=== PATIENT | female | born 1985 | race Caucasian/White ===

== ENCOUNTER → 2018-12-14 | Outpatient (REF) ==
[~2018-12-14] MED LIST: FEMIRON20 MG PO
== END ==
LOC: ZLAB.WCH 10:03
DX: Z01.89 Encounter for other specified special examinations (principal)

== ENCOUNTER 2019-12-29 13:23 | Inpatient (IN) | payer MEDICAID ==
[~2019-12-29] VITALS: Ht 162.6 cm; Wt 102.7 kg
[2019-12-29] VITALS (30 sets, daily range): BP systolic 91–152; BP diastolic 47–92; PULSE 76–105; TEMP 97.6–98.4
--- NOTE | 2019-12-29 15:15 | NUR ---
Patient ambulatory to LR1 with spouse, changed into gown. Patient admitted for 36.3 week demise. Plan of care discussed.
--- NOTE | 2019-12-29 15:20 | NUR ---
This RN, Nagi KHAN, Kalyn KHAN at beside and Lourdes Muñoz going over information on testing patient for covid. Nagi swabs patient at this time and patient tolerates well. 1540: IV started in right wrist per Laura KHAN and blood drawn for lab, LR infusing. Assessment completed and packet given and gone over. Plan of care discussed and discussing pitocin induction and patient agrees to plan of care. 1426: Pitocin started at 2mU per protocol.
[2019-12-29] MEDS ORDERED: TYLENOL 500MG500 MG PO (16:29)
[2019-12-29] MEDS ORDERED: PRENATAL TABLET PO (16:29)
[2019-12-29 16:37] LABS: BASO % 0.2 % (0.0-2.0); EOS # 0.1 (0.0-0.7); EOS % 1.6 % (0-4.0); GRAN # 5.2 (1.4-6.5); GRAN % 62.4 % (42.2-75.2); HEMOGLOBIN 11.5 g/dl (12.5-16.0); LYMPH # 1.9 (1.2-3.4); LYMPH % 22.7 % (20.0-51.0); MEAN CELL VOLUME 98 fl (80.0-100.0); MEAN CORPUSCULAR HEMOGLOBIN 33 pg (27.0-31.0); MEAN CORPUSCULAR HGB CONC 34 g/dl (33.0-37.0); MEAN PLATELET VOLUME 8.7 fl (7.4-10.4); MONO # 1.1 (0.1-0.6); MONO % 12.7 % (1.7-9.3); PLATELET COUNT 236 K/mm3 (130-400); RED BLOOD COUNT 3.46 M/mm3 (4.10-5.30); REDCELL DISTRIBUTION WIDTH-CV 13.2 % (11.5-14.5)
[2019-12-29 16:39] LABS: HEMATOCRIT 33.8 % (37.0-47.0)
[2019-12-29 16:52] LABS: ALBUMIN 3.9 gm/dL (3.5-5.0); CALCIUM 9.4 mg/dL (8.4-10.2); CREATININE, serum 0.31 (0.52-1.25); POTASSIUM 3.6 mmol/L (3.4-5.0); TOTAL PROTEIN 6.9 gm/dL (6.4-8.2)
--- NOTE | 2019-12-29 17:15 | NUR ---
Patient requesting epidural and T.Harleigh RN ADVICE called and notified. Dr. Gudino at bedside and SONO done at this time per patients request. No heart beat noted. Dr. Gudino informs patients on plan of care and answering questions. 1730: SVE per physician /-2 with meconium fluid noted. Patient/significant other updated.
[2019-12-29 17:16] LABS: THYROID STIMULATING HORMONE 0.623 uIU/mL (0.465-4.680)
--- NOTE | 2019-12-29 17:32 | NUR ---
Patient off monitor to void. 1747: Patient sitting on edge of bed and Kayla MAR at bedside for placement of epidural. Risks gone over. 1803: Test dose given and patient tolerates well. Patient repositioned and plan of care discussed. 182: Patient sitting up eating meal. 1825: Bedside report given to Ekta KHAN.
[2019-12-30] VITALS (12 sets, daily range): BP systolic 94–116; BP diastolic 51–88; PULSE 62–91; TEMP 97.7–98
--- NOTE | 2019-12-30 00:15 | NUR ---
0015 - Pt reports a lot of pressure. SVE by this RN /+2. Dr. Gudino notifed and on his way in for delivery. 0020- Pitts removed without complications. Pushing instructions reviewed. 0030- Dr. Gudino at the bedside. Pt set up for delivery. 0040- of non-viable female fetus. Cords clamped and cut. Fetus carried to warmer by Dr. Gudino. 0042- of placenta. Pitocin started at 333ml/hr per order and protocol. Fundus firm and lochia WNL.
--- NOTE | 2019-12-30 02:25 | NUR ---
Contacted [facility] and spoke with Ang at this time. Referal number [phone]. Baby Girl Vargas not a candidate for donation, ruled out due to age.
--- NOTE | 2019-12-30 03:18 | NUR ---
Was called in at 1:55 for demise. Prayed with the family and provided spiritual care.
--- NOTE | 2019-12-30 06:00 | NUR ---
Pt up to the bathroom with standby assist and without complications. Pt was able to void. Nely-care done. Pt ambulated back to bed. Plan of care reviewed with pt.
--- NOTE | 2019-12-30 07:30 | NUR ---
PATIENT AND BOYFRIEND RESTING IN BEDN BREAKFAST TRY TAKEN INTO BEDSIDE. BOYFRIEND STATES I WONDER WHY THIS HAPPENED. THIS NURSE OFFERED DES SERVICES. PATIENT DECLINED. THIS NURSE STATED ATTENDANT COIN OPERATED LAUNDRY MAY COME TALK WELL [facility]. PATIENT AND SPOUSE UNDERSTAND. PATIENT DENIES NEEDS AT THIS TIME
[2019-12-30 08:33] LABS: PT G20210A MUTATION B Negative (Negative)
[2019-12-30] MEDS ORDERED: IBU600 MG PO (08:34)
--- NOTE | 2019-12-30 08:45 | NUR ---
CHANCE PATHOLOGIST TO NURSERY TO PREFORM GENETIC AND CHROMOSOMAL STUDIES
--- NOTE | 2019-12-30 09:12 | NUR ---
PATIENT REQUESTED I CALL [facility] IN [place]. THIS NURSE TALKED TO BRI. FAX NUMBER GIVEN. BRI SAID SENDING THE BABY HOME WITH THE FAMILY IS OKAY. [facility] NUMBER AND WILL BE FAXING PAPERWORK FOR THE PATIENT TO COMPLETE.
[2019-12-30 10:23] LABS: RPR (VDRL) XXX
[2019-12-30 10:48] LABS: LUPUS ANTICOAGULANT INR 1.1 (0.7-1.3); LUPUS ANTICOAGULANT PT 13.7 Seconds (())
--- NOTE | 2019-12-30 12:55 | NUR ---
FELISA received a social service director consult for the patient due to demise. The patient discharged before FELISA could meet with the patient. SW contacted the patient. The patient lives with the father of the baby and she states she has plenty of support. SW left social service director contact information if she needed resources in the furture. The patient had me on speaker phone with her family and one of them stated that the staff here is "fantastic!" There are no additional needs at this time.
[2019-12-31 04:47] LABS: BETA-2 GPI IGG AABS <20.0 CU (<=20.0); BETA-2 GPI IGM AABS <20.0 CU (<=20.0)
== END 2019-12-30 11:00 | disposition home or self-care (01) | DRG 807 ==
LOC: OB 13:23 → LDR 15:06
PROVIDERS: ADMIT Obstetrics & Gynecology
PROC: 10E0XZZ Delivery of Products of Conception, External Approach (ICD-10-PCS; principal; 2019-12-30)
DX: O36.5930 Maternal care for other known or suspected poor fetal growth, third trimester, not applicable or unspecified (principal); Z37.1 Single stillbirth; O40.3XX0 Polyhydramnios, third trimester, not applicable or unspecified; O43.123 Velamentous insertion of umbilical cord, third trimester; O35.8XX0 Maternal care for other (suspected) fetal abnormality and damage, not applicable or unspecified; O69.89X0 Labor and delivery complicated by other cord complications, not applicable or unspecified; Z3A.36 36 weeks gestation of pregnancy
CPT/HCPCS: J2590; J2791; J7120